=== PATIENT | male | born 1940 | race Caucasian/White ===

== ENCOUNTER 2019-12-17 09:24 | Outpatient (RCR) | payer MEDICARE | END 2019-12-29 | LOC: M PT 09:24 | PROVIDERS: ATTEND Internal Medicine Cardiovascular Disease | DX: Z51.89 Encounter for other specified aftercare (principal); I63.9 Cerebral infarction, unspecified ==

== ENCOUNTER 2020-07-31 15:14 | Inpatient (IN) | payer MEDICARE ==
[~2020-07-31] VITALS: Ht 170.2 cm; Wt 69.4 kg
--- NOTE | 2020-07-31 15:35 | REP ---
INDICATION: CVA - Nursing interventions must not delay CT COMPARISON: None. TECHNIQUE: Axial noncontrast images from the skull base to the thoracic inlet with coronal reformations. This CT examination was performed using the following dose reduction techniques: Automated exposure control, adjustment of mA and/or kv according to the patient's size, and use of iterative reconstruction technique. FINDINGS: Atrophy with periventricular leukomalacia and microvascular ischemic changes are appreciated. Scattered areas of encephalomalacia suggest old infarctions primarily involving the right occipital region. The ventricles and sulci are symmetric. Molina-white differentiation is maintained. There is no evidence for acute intracranial hemorrhage, mass/mass effect, pathology or infarction. No extra-axial fluid collection. Calvarium is intact. Paranasal sinuses and mastoid air cells are clear. IMPRESSION: Atrophy and microvascular ischemic changes. No acute intracranial hemorrhage, edema, or mass/mass effect noted. <Electronically signed by Rowdy Lanza > 07/31/20 [id number]
--- NOTE | 2020-07-31 16:24 | REP ---
INDICATION: CVA COMPARISON: None. TECHNIQUE: Portable AP view of the chest FINDINGS: The mediastinum and cardiac silhouette are within normal limits for portable technique. The lung anderson are clear without acute consolidation, effusion, or pneumothorax. Skeletal structures are intact. IMPRESSION: No acute cardiopulmonary process appreciated. <Electronically signed by Rowdy Lanza > 07/31/20 [id number]
[2020-07-31 16:31] LABS: BASO % 0.7 % (0.0-1.0); EOS # 0.2 10^3/uL (0.0-0.5); EOS % 2.7 % (0.0-3.0); HEMATOCRIT 45.7 % (42.0-52.0); HEMOGLOBIN 15.9 g/dl (13.5-17.5); LYMPH # 1.5 10^3/uL (1.5-5.0); LYMPH % 26.7 % (24.0-44.0); MEAN CORPUSCULAR HEMOGLOBIN 32.9 pg (27.0-33.0); MEAN CORPUSCULAR HGB CONC 34.8 g/dl (32.0-36.5); MEAN CORPUSCULAR VOLUME 94.4 fl (80.0-96.0); MONO # 0.6 10^3/uL (0.0-0.8); MONO % 10.4 % (2.0-8.0); NEUTROPHILS # 3.2 10^3/uL (1.5-8.5); NEUTROPHILS % 58.6 % (36.0-66.0); PLATELET COUNT, AUTOMATED 269 10^3/uL (150-450); RED BLOOD COUNT 4.84 10^6/uL (4.30-6.10); WHITE BLOOD COUNT 5.5 10^3/uL (4.0-10.0)
[2020-07-31 16:42] LABS: INR 0.98; PARTIAL THROMBOPLASTIN TIME 30.5 SECONDS (24.2-38.5); PROTHROMBIN TIME 13.2 SECONDS (12.5-14.3)
[2020-07-31 17:00] LABS: CK-MB VALUE MASS < 1.0 NG/ML (<3.6); CPK CREATINE PHOSPHOKINASE 95 U/L (39-308); MB/CK RELATIVE INDEX 1.05 (< OR =4); TROPONIN I < 0.02 NG/ML (< 0.10)
[2020-07-31 17:30] LABS: BLOOD UREA NITROGEN 20 MG/DL (7-18); CALCIUM LEVEL 9.3 MG/DL (8.8-10.2); CARBON DIOXIDE LEVEL 26 MEQ/L (21-32); CHLORIDE LEVEL 105 MEQ/L (98-107); CREATININE FOR GFR 1.13 MG/DL (0.70-1.30); GLOMERULAR FILTRATION RATE > 60.0 (>35); GLUCOSE, FASTING 119 MG/DL (70-100); POTASSIUM SERUM 4.2 MEQ/L (3.5-5.1); SODIUM LEVEL 138 MEQ/L (136-145)
[2020-07-31] MEDS ORDERED: ATOR40TA75 PO (17:42)
[2020-07-31] MEDS ORDERED: ASPI81CH33 (17:42)
[2020-07-31] MEDS ORDERED: ASPI81TA26 PO (17:50)
[2020-07-31] MEDS ORDERED: IBUP200T45 PO (17:51)
[2020-07-31] MEDS ORDERED: ACET-861 PO (17:51)
--- NOTE | 2020-07-31 19:08 | HPEPDOC ---
General Date of Admission 07/31/20 Date of Service: Jul 31, 2020 Chief Complaint The patient is a 79-year-old male admitted with a reason for visit of S/S Stroke. Source: Patient, RN/MD History of Present Illness 79-year-old male with past medical history of hyperlipidemia, GERD, hemorrhagic stroke in November 2019, presented to emergency room with the slurring of speech for 1 day. Patient states that his thinks his speech is slurred. However, patient himself feels that his speech is normal. reported that she first noticed is some speech to be garbled yesterday morning at 7 AM when he was talking over the phone. Yesterday throughout the day and today he has been having intermittent episodes of garbled speech, so he called PMDs office and was instructed to be brought to the emergency room. In the ED, his CT scan showed chronic microvascular changes, no acute ischemic stroke or hemorrhage. . He continued to have speech abnormality without any weakness of the limbs. He was admitted for evaluation of acute stroke. 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 Prostatectomy. Family History Significant Family History: COPD (. Father), Diabetes (mother, 2 sisters), Heart disease (, mother and one brother and one sister), Renal disease (. One sister was in dialysis), Vascular disease (, brother, one sister had aneurysm) Social History * Smoker: cigar (. Occasionally, but quit several years ago) Alcohol: occationally (. One beer a day) Drugs: denies A-FIB/CHADSVASC A-FIB History Current/History of A-Fib/PAF?: No Review of Systems Constitutional: Denies: Chills, Fever, Night Sweats Eyes: Denies: Pain, Vision change ENT: Denies: Head Aches, Ear Pain, Dysphagia Skin: Denies: Rash, Lesions, Breakdown Pulmonary: Denies: Dyspnea, Cough Cardiovascular: Denies: Chest Pain, Palpitations, Orthopnea, Paroxysmal Noc. Dyspnea, Lt Headedness Gastrointestinal: Reports: Constipation; Denies: Nausea, Vomiting, Abdominal Pain, Diarrhea Genitourinary: Denies: Dysuria, Frequency, Incontinence, Retention Neurological: Reports: Change in speech, Confusion; Denies: Weakness, Numbness, Incoordination, Other Symptoms Physical Examination General Exam: Positive: Alert, Cooperative, No Acute Distress Eye Exam: Positive: PERRLA, Conjunctiva & lids normal, EOMI; Negative: Sclera icteric ENT Exam: Positive: Atraumatic, Mucous membr. moist/pink, Pharynx Normal Neck Exam: Positive: Supple; Negative: JVD, thyromegaly Chest Exam: Positive: Clear to auscultation, Normal air movement Heart Exam: Positive: Rate Normal, Regular Rhythm, Normal S1, Normal S2; Negative: Murmurs, Rubs Telemetry: Positive: No significant arrhythmia Abdomen Exam: Positive: Normal bowel sounds, Soft; Negative: Tenderness, Hepatospenomegaly Extremity Exam: Positive: Other ((with artificial leg below knee); Negative: Clubbing, Cyanosis, Edema Neuro Exam: Positive: Normal Tone, Sensation Intact, Other (, slurred speech) Psych Exam: Positive: Memory Intact, Oriented x 3 Vital Signs Vital Signs Date Time Temp Pulse Resp B/P (MAP) Pulse Ox O2 Delivery O2 Flow Rate FiO2 07/31/20 17:55 07/31/20 15:15 97.5 69 18 96 Room Air Laboratory Data Labs 24H Laboratory Tests 2 07/31/20 16:19: Immature Granulocyte % (Auto) 0.9, Neutrophils (%) (Auto) 58.6, Lymphocytes (%) (Auto) 26.7, Monocytes (%) (Auto) 10.4H, Eosinophils (%) (Auto) 2.7, Basophils (%) (Auto) 0.7, Neutrophils # (Auto) 3.2, Lymphocytes # (Auto) 1.5, Monocytes # (Auto) 0.6, Eosinophils # (Auto) 0.2, Basophils # (Auto) 0.0, Nucleated Red Blood Cells % (auto) 0.0, Prothrombin Time 13.2, Prothromb Time International Ratio 0.98, Activated Partial Thromboplast Time 30.5, Anion Gap 7L, Glomerular Filtration Rate > 60.0, Calcium Level 9.3, Total Creatine Kinase 95, Creatine Kinase MB < 1.0, Creatine Kinase MB Relative Index 1.05, Troponin I < 0.02 CBC/BMP Laboratory Tests 07/31/20 16:19 Assessment/Plan 79-year-old male with past medical history of hyperlipidemia, GERD, hemorrhagic stroke in November 2019, presented to emergency room with the slurring of speech for 1 day. Patient states that his thinks his speech is slurred. However, patient himself feels that his speech is normal. reported that she first noticed is some speech to be garbled yesterday morning at 7 AM when he was talking over the phone. Yesterday throughout the day and today he has been loaiza ving intermittent episodes of garbled speech, so he called PMDs office and was instructed to be brought to the emergency room. In the ED, his CT scan showed chronic microvascular changes, no acute ischemic stroke or hemorrhage. He continued to have speech abnormality without any weakness of the limbs. He was admitted for evaluation of acute stroke. Possible stroke Continue aspirin and statin allow permissive hypertension Telemetry monitoring Will request Recent echo from Dr. Sharma's office MRI and MRA of brain Do not use antihypertensives if his systolic blood pressure is less than 180 Carotid Doppler. Plan / VTE VTE Prophylaxis Ordered?: Yes DIPAK ALVES MD Jul 31, 2020 18:13
[2020-07-31 19:26] LABS: RSV AMPLIFICATION NEGATIVE (NEGATIVE)
--- NOTE | 2020-07-31 20:04 | REP ---
INDICATION: stroke COMPARISON: None. TECHNIQUE: Molina scale and color Doppler evaluation using linear high frequency transducer Findings: FINDINGS: Two-dimensional molina scale and color images demonstrate moderate to significant atheromatous partially calcified plaquing (left greater than right). Color Doppler interrogation demonstrates normal arterial wave patterns and velocities with spectral broadening. Visible narrowing is identified through the left common carotid artery and carotid bulb and to a lesser extent through the internal carotid artery. Normal flow direction is appreciated in the bilateral vertebral arteries. ICA peak systolic velocity: Right 73.1 cm/s; Left 102.0 cm/s ICA diastolic velocity: Right 20.9 cm/s; Left 27.8 cm/s ECA peak systolic velocity: Right 136.0 cm/s; Left 68.9 cm/s CCA peak systolic velocity: Right 92.1 cm/s; Left 88.8 cm/s ICA/CCA ratio: Right 0.79 cm/s; Left 1.15 cm/s IMPRESSION: Based on set standards narrowing falls within the less than 50% range and by visual inspection appears to be approaching 50% through the left carotid bulb and proximal internal carotid artery. <Electronically signed by Rowdy Lanza > 07/31/202000
--- NOTE | 2020-07-31 20:07 | ECGEPIP ---
[facility] - ED Test Date: 2020-07-31 Pat Name: MICHELLE TRACY Department: Room: - Gender: Male Dobie Man: : 1940 Requested By: TAMMIE Knight Order Number: [id number] Reading MD: Chris Underwood Measurements Intervals [place] Rate: 65 P: 34 [place]: 150 QRS: 0 QRSD: 94 T: 18 QT: 404 QTc: 420 Interpretive Statements Normal sinus rhythm POOR R WAVE PROGRESSION NO PRIORS FOR COMPARISON Electronically Signed on 07-31-2020 20:07:36 EDT by Chris Underwood
[2020-07-31] MEDS ORDERED: amLODIPine 5 MG TAB PO SCH (21:00)
--- NOTE | 2020-07-31 22:10 | REPVR ---
PROCEDURE INFORMATION: Exam: MR Head Without Contrast Exam date and time: 07/31/2020 6:42 PM Age: 79 years old Clinical indication: Speech disturbance; Slurred speech TECHNIQUE: Imaging protocol: MR of the head without contrast. COMPARISON: CT Head without contrast 07/31/2020 3:23 PM FINDINGS: Brain: Acute infarct in the left webb radiata measuring 1 cm. Moderate to severe chronic microvascular ischemic changes. Encephalomalacia in the right occipital lobe. Chronic infarct in the right webb radiata. Cerebral ventricles: Normal. No ventriculomegaly. Bones/joints: Unremarkable. Paranasal sinuses: Normal as visualized. No acute sinusitis. Mastoid air cells: Normal as visualized. No mastoid effusion. Orbital cavity: Unremarkable. Soft tissues: Unremarkable. IMPRESSION: Acute infarct in the left webb radiata measuring 1 cm. Electronically signed by: Jerome Finney On 07/31/2020 22:10:23 PM
--- NOTE | 2020-07-31 22:16 | REPVR ---
PROCEDURE INFORMATION: Exam: MRA Head Without Contrast; Arteriography Exam date and time: 07/31/2020 6:42 PM Age: 79 years old Clinical indication: Speech disturbance; Slurred speech TECHNIQUE: Imaging protocol: Magnetic resonance angiography head without contrast. Exam focused on the arteries. COMPARISON: CT Head without contrast 07/31/2020 3:23 PM FINDINGS: ANTERIOR CIRCULATION: Right internal carotid artery: Intracranial segment is patent with no significant stenosis. No aneurysm. Right middle cerebral artery: No occlusion or significant stenosis. No aneurysm. Right anterior cerebral artery: No occlusion or significant stenosis. No aneurysm. Left internal carotid artery: Intracranial segment is patent with no significant stenosis. No aneurysm. Left middle cerebral artery: No occlusion or significant stenosis. No aneurysm. Left anterior cerebral artery: No occlusion or significant stenosis. No aneurysm. 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 Left vertebral artery: No occlusion or significant stenosis. No aneurysm. Basilar artery: No occlusion or significant stenosis. No aneurysm. Right posterior cerebral artery: No occlusion or significant stenosis. No aneurysm. Left posterior cerebral artery: No occlusion or significant stenosis. No aneurysm. 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 Electronically signed by: Jerome Finney On 07/31/2020 22:15:57 PM
[2020-08-01] MEDS: ATORVASTATIN 20 MG TAB PO SCH ×2 (00:09→20:49)
[2020-08-01] MEDS: ASPIRIN 81MG ENTERIC TABLET PO SCH ×2 (00:09→08:47)
[2020-08-01 06:00] VITALS: BP 144/84
[2020-08-01 06:29] LABS: BASO # 0.1 10^3/uL (0.0-0.2); BASO % 0.7 % (0.0-1.0); EOS # 0.2 10^3/uL (0.0-0.5); EOS % 2.5 % (0.0-3.0); HEMATOCRIT 44.5 % (42.0-52.0); HEMOGLOBIN 15.8 g/dl (13.5-17.5); LYMPH # 1.7 10^3/uL (1.5-5.0); LYMPH % 23.4 % (24.0-44.0); MEAN CORPUSCULAR HEMOGLOBIN 32.9 pg (27.0-33.0); MEAN CORPUSCULAR HGB CONC 35.5 g/dl (32.0-36.5); MEAN CORPUSCULAR VOLUME 92.7 fl (80.0-96.0); MONO # 0.7 10^3/uL (0.0-0.8); MONO % 9.1 % (2.0-8.0); NEUTROPHILS # 4.5 10^3/uL (1.5-8.5); NEUTROPHILS % 63.5 % (36.0-66.0); PLATELET COUNT, AUTOMATED 260 10^3/uL (150-450); WHITE BLOOD COUNT 7.1 10^3/uL (4.0-10.0)
[2020-08-01 06:48] LABS: BLOOD UREA NITROGEN 16 MG/DL (7-18); CALCIUM LEVEL 9.1 MG/DL (8.8-10.2); CARBON DIOXIDE LEVEL 23 MEQ/L (21-32); CHLORIDE LEVEL 108 MEQ/L (98-107); CREATININE FOR GFR 1.04 MG/DL (0.70-1.30); GLOMERULAR FILTRATION RATE > 60.0 (>35); GLUCOSE, FASTING 108 MG/DL (70-100); POTASSIUM SERUM 4.3 MEQ/L (3.5-5.1); SODIUM LEVEL 139 MEQ/L (136-145)
[2020-08-01 08:25] LABS: CHOLESTEROL LEVEL 231 MG/DL (<200); CHOLESTEROL RISK RATIO 5.372 (<5); HDL CHOLESTEROL 43 MG/DL (>40); LDL CHOLESTEROL 149 MG/DL (<100); NON-HDL-C 188 MG/DL; TRIGLYCERIDES LEVEL 194 MG/DL (<150)
[2020-08-01] MEDS: ENOXAPARIN 40MG/0.4ML SYRINGE (J1650 PER 10MG) SC SCH (08:46)
--- NOTE | 2020-08-01 11:25 | IPNPDOC ---
Subjective Date Seen The patient was seen on 08/01/20. Subjective Chief Complaint/HPI No complaints this morning. Still has some slurring of speech Objective Physical Examination General Exam: Positive: Alert, Cooperative, No Acute Distress Eye Exam: Positive: PERRLA, Conjunctiva & lids normal, EOMI; Negative: Sclera icteric ENT Exam: Positive: Atraumatic, Mucous membr. moist/pink, Pharynx Normal Neck Exam: Positive: Supple; Negative: JVD, thyromegaly Chest Exam: Positive: Clear to auscultation, Normal air movement Heart Exam: Positive: Rate Normal, Regular Rhythm, Normal S1, Normal S2; Negative: Murmurs, Rubs Telemetry: Positive: No significant arrhythmia Abdomen Exam: Positive: Normal bowel sounds, Soft; Negative: Tenderness, Hepatospenomegaly Extremity Exam: Positive: Other ((with artificial leg below knee); Negative: Clubbing, Cyanosis, Edema Neuro Exam: Positive: Normal Tone, Sensation Intact, Other (, slurred speech) Psych Exam: Positive: Memory Intact, Oriented x 3 Assessment /Plan Assessment 79-year-old male with past medical history of hyperlipidemia, GERD, hemorrhagic stroke in November 2019, presented to emergency room with the slurring of speech for 1 day. Patient states that his thinks his speech is slurred. However, patient himself feels that his speech is normal. reported that she first noticed is some speech to be garbled yesterday morning at 7 AM when he was talking over the phone. Yesterday throughout the day and today he has been having intermittent episodes of garbled speech, so he called PMDs office and was instructed to be brought to the emergency room. In the ED, his CT scan showed chronic microvascular changes, no acute ischemic stroke or hemorrhage. He della nued to have speech abnormality without any weakness of the limbs. He was admitted for evaluation of acute stroke. MRI showed acute left webb radiata infarct. Left Webb Radiata Acute infarct. Continue aspirin and statin allow permissive hypertension Telemetry monitoring Will request Recent echo from Dr. Sharma's office Carotid Doppler no significant obstruction. Plan/VTE VTE Prophylaxis Ordered?: Yes VS, I&O, 24H, Fishbone Vital Signs/I&O Vital Signs Date Time Temp Pulse Resp B/P (MAP) Pulse Ox O2 Delivery O2 Flow Rate FiO2 08/01/20 06:00 97.5 78 20 144/84 (104) 96 07/31/20 23:50 Room Air I&O- Last 24 Hours up to 6 AM 08/01/20 06:00 Intake Total 180 ml Output Total 0 ml Balance 180 ml Laboratory Data 24H LABS Laboratory Tests 2 07/31/20 16:19: Immature Granulocyte % (Auto) 0.9, Neutrophils (%) (Auto) 58.6, Lymphocytes (%) (Auto) 26.7, Monocytes (%) (Auto) 10.4H, Eosinophils (%) (Auto) 2.7, Basophils (%) (Auto) 0.7, Neutrophils # (Auto) 3.2, Lymphocytes # (Auto) 1.5, Monocytes # (Auto) 0.6, Eosinophils # (Auto) 0.2, Basophils # (Auto) 0.0, Nucleated Red Blood Cells % (auto) 0.0, Prothrombin Time 13.2, Prothromb Time International Ratio 0.98, Activated Partial Thromboplast Time 30.5, Anion Gap 7L, Glomerular Filtration Rate > 60.0, Calcium Level 9.3, Total Creatine Kinase 95, Creatine Kinase MB < 1.0, Creatine Kinase MB Relative Index 1.05, Troponin I < 0.02 07/31/20 18:01: Coronavirus (COVID-19)(PCR) NEGATIVE, Influenza Type A (RT-PCR) NEGATIVE, Influ micheal Type B (RT-PCR) NEGATIVE, Respiratory Syncytial Virus (PCR) NEGATIVE 08/01/20 05:50: Immature Granulocyte % (Auto) 0.8, Neutrophils (%) (Auto) 63.5, Lymphocytes (%) (Auto) 23.4L, Monocytes (%) (Auto) 9.1H, Eosinophils (%) (Auto) 2.5, Basophils (%) (Auto) 0.7, Neutrophils # (Auto) 4.5, Lymphocytes # (Auto) 1.7, Monocytes # (Auto) 0.7, Eosinophils # (Auto) 0.2, Basophils # (Auto) 0.1, Nucleated Red Blood Cells % (auto) 0.0, Anion Gap 8, Glomerular Filtration Rate > 60.0, C alcium Level 9.1, Triglycerides Level 194H, Total Cholesterol 231H, LDL Cholesterol 149H, Non-HDL Cholesterol (LDL + VLDL) 188, Total HDL Cholesterol 43, Cholesterol/HDL Ratio 5.372H CBC/BMP Laboratory Tests 07/31/20 16:19 08/01/20 05:50 DIPAK ALVES MD Aug 01, 2020 11:25
[2020-08-01 14:00] VITALS: BP 127/66
[2020-08-01 22:00] VITALS: BP 143/70
[2020-08-02 06:00] VITALS: BP 142/67
[2020-08-02] MEDS: ENOXAPARIN 40MG/0.4ML SYRINGE (J1650 PER 10MG) SC SCH (08:50)
[2020-08-02 08:55] VITALS: BP 124/66
[2020-08-02] MEDS: ASPIRIN 81MG ENTERIC TABLET PO SCH (09:02)
--- NOTE | 2020-08-03 08:23 | DS.PDOC ---
Discharge Summary General Date of Admission Jul 31, 2020 at 18:42 Date of Discharge 08/02/20 Discharge Summary PROCEDURES PERFORMED DURING STAY: [None]. DISCHARGE DIAGNOSES: Acute left Woods radiata infarct 1cm. 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 HOSPITAL COURSE: 79-year-old male with past medical history of hyperlipidemia, GERD, hemorrhagic stroke in November 2019, presented to emergency room with the slurring of speech for 1 day. Patient states that his thinks his speech is slurred. However, patient himself feels that his speech is normal. reported that she first noticed is some speech to be garbled the before admission in morning at 7 AM when he was talking over the phone. He had been having interm ittent episodes of garbled speech for 1 day, so he called PMDs office and was instructed to be brought to the emergency room. In the ED, his CT scan showed chronic microvascular changes, no acute ischemic stroke or hemorrhage. He continued to have speech abnormality without any weakness of the limbs. He was admitted for evaluation of acute stroke. MRI showed acute left woods radiata infarct. Left Woods Radiata Acute infarct. Continue aspirin and statin not hypertensive Telemetry monitoring no cardiac arrhythmias. Did have sinus bradycardia to 40s when asleep. Carotid Doppler no significant obstruction. was evaluated by Speech therapy and PT and OT. DISCHARGE MEDICATIONS: Please see below. ALLERGIES: Please see below. PHYSICAL EXAMINATION ON DISCHARGE: VITAL SIGNS: Please see below. General Exam: Positive: Alert, Cooperative, No Acute Distress Eye Exam: Positive: PERRLA, Conjunctiva & lids normal, EOMI; Negative: Sclera icteric ENT Exam: Positive: Atraumatic, Mucous membr. moist/pink, Pharynx Normal Neck Exam: Positive: Supple; Negative: JVD, thyromegaly Chest Exam: Positive: Clear to auscultation, Normal air movement Heart Exam: Positive: Rate Normal, Regular Rhythm, Normal S1, Normal S2; Negative: Murmurs, Rubs Telemetry: Positive: No significant arrhythmia Abdomen Exam: Positive: Normal bowel sounds, Soft; Negative: Tenderness, Hepatospenomegaly Extremity Exam: Positive: Other ((with artificial leg below knee); Negative: Clubbing, Cyanosis, Edema Neuro Exam: Positive: Normal Tone, Sensation Intact, Other (, slurred speech) Psych Exam: Positive: Memory Intact, Oriented x 3 LABORATORY DATA: Please see below. IMAGING: MRI brain: FINDINGS: Brain: Acute infarct in the left woods radiata measuring 1 cm. Moderate to severe chronic microvascular ischemic changes. Encephalomalacia in the right occipital lobe. Chronic infarct in the right woods radiata. Cerebral ventricles: Normal. No ventriculomegaly. Bones/joints: Unremarkable. Paranasal sinuses: Normal as visualized. No acute sinusitis. Mastoid air cells: Normal as visualized. No mastoid effusion. Orbital cavity: Unremarkable. Soft tissues: Unremarkable. IMPRESSION: Acute infarct in the left woods radiata measuring 1 cm. MRA brain: FINDINGS: ANTERIOR CIRCULATION: Right internal carotid artery: Intracranial segment is patent with no significant stenosis. No aneurysm. Right middle cerebral artery: No occlusion or significant stenosis. No aneurysm. Right anterior cerebral artery: No occlusion or significant stenosis. No aneurysm. Left internal carotid artery: Intracranial segment is patent with no significant stenosis. No aneurysm. Left middle cerebral artery: No occlusion or significant stenosis. No aneurysm. Left anterior cerebral artery: No occlusion or significant stenosis. No aneurysm. 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 Left vertebral artery: No occlusion or significant stenosis. No aneurysm. Basilar artery: No occlusion or significant stenosis. No aneurysm. Right posterior cerebral artery: No occlusion or significant stenosis. No aneurysm. Left posterior cerebral artery: No occlusion or significant stenosis. No aneurysm. 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 Carotid Vascular US FINDINGS: Two-dimensional quiles scale and color images demonstrate moderate to significant atheromatous partially calcified plaquing (left greater than right). Color Doppler interrogation demonstrates normal arterial wave patterns and velocities with spectral broadening. Visible narrowing is identified through the left common carotid artery and carotid bulb and to a lesser extent through the internal carotid artery. Normal flow direction is appreciated in the bilateral vertebral arteries. ICA peak systolic velocity: Right 73.1 cm/s; Left 102.0 cm/s ICA diastolic velocity: Right 20.9 cm/s; Left 27.8 cm/s ECA peak systolic velocity: Right 136.0 cm/s; Left 68.9 cm/s CCA peak systolic velocity: Right 92.1 cm/s; Left 88.8 cm/s ICA/CCA ratio: Right 0.79 cm/s; Left 1.15 cm/s IMPRESSION: Based on set standards narrowing falls within the less than 50% range and by visual inspection appears to be approaching 50% through the left carotid bulb and proximal internal carotid artery. ACTIVITY: [As tolerated]. DIET: Regular DISPOSITION: 01 Home, Self-Care. DISCHARGE INSTRUCTIONS: PMD in 1 week Neurology in 2 to 3 weeks DISCHARGE CONDITION: [Stable]. TIME SPENT ON DISCHARGE:35 minutes. Vital Signs/I&Os Vital Signs Date Time Temp Pulse Resp B/P (MAP) Pulse Ox O2 Delivery O2 Flow Rate FiO2 08/02/20 08:55 98.3 66 16 124/66 (85) 95 Room Air I&O- Last 24 Hours up to 6 AM 08/03/20 06:00 Intake Total 0 ml Balance 0 ml Discharge Medications Scheduled Acetaminophen (Acetaminophen) 500 Mg Tablet, 500 MG PO Q2D, (Reported) Aspirin (Aspirin EC) 81 Mg Tablet.dr, 81 MG PO DAILY, (Reported) Atorvastatin Calcium (Atorvastatin Calcium) 40 Mg Tablet, 40 MG PO DAILY, (Reported) Ibuprofen (Ibu-200) 200 Mg Tablet, 200 MG PO Q2D, (Reported) Allergies Coded Allergies: Penicillins (Verified Allergy, Unknown, 07/31/20) iodine (Verified Allergy, Unknown, 07/31/20) "throat closed up" DIPAK ALVES MD Aug 03, 2020 08:23
== END 2020-08-02 09:50 | disposition home or self-care (01) | DRG 65 ==
LOC: M ED 15:14 → M ED INP 18:42 → ENRESERV 21:48 → M MSPAV 23:50
PROVIDERS: ADMIT Internal Medicine Nephrology; ATTEND Internal Medicine Nephrology
DX: I63.59 Cerebral infarction due to unspecified occlusion or stenosis of other cerebral artery (principal); I69.354 Hemiplegia and hemiparesis following cerebral infarction affecting left non-dominant side; E78.5 Hyperlipidemia, unspecified; K21.9 Gastro-esophageal reflux disease without esophagitis; I65.01 Occlusion and stenosis of right vertebral artery; Z79.82 Long term (current) use of aspirin; Z79.899 Other long term (current) drug therapy; Z85.46 Personal history of malignant neoplasm of prostate; Q72 Reduction defects of lower limb; Q71.22 Congenital absence of both forearm and hand, left upper limb; Q72.31 Congenital absence of right foot and toe(s); Q71.31 Congenital absence of right hand and finger; Z98.49 Cataract extraction status, unspecified eye; Z87.891 Personal history of nicotine dependence; Z88.0 Allergy status to penicillin; Z88.8 Allergy status to other drugs, medicaments and biological substances

== ENCOUNTER → 2021-06-09 | Outpatient (CLI) | payer MEDICARE ==
[~2021-06-09] MED LIST: ACET-861 PO; ASPI81CH33; ASPI81TA26 PO; ATOR40TA75 PO; IBUP200T45 PO
== END ==
LOC: M RAD 06:39
PROVIDERS: ATTEND Internal Medicine Cardiovascular Disease
DX: K81.9 Cholecystitis, unspecified (principal)
CPT/HCPCS: 78227; A9537

== ENCOUNTER 2024-12-19 10:49 | Emergency (ER) | payer MEDICARE ==
[~2024-12-19] VITALS: Ht 170.2 cm; Wt 72.0 kg
[2024-12-19] MEDS ORDERED: LOSA25TA13 PO (11:08)
[2024-12-19 13:11] VITALS: BP 135/65; O2SAT 96
[2024-12-19] MEDS: IPRATROPIUM 0.5 MG/ALBUTEROL 2.5 MG INH SOL UD 3 ML NEB ONE (13:45)
[2024-12-19] MEDS: ACETAMINOPHEN 500 MG TAB PO ONE (13:45)
[2024-12-19 14:50] VITALS: TEMP 100.8
[2024-12-19] MEDS ORDERED: NEBU1EAC78 MC (15:25)
[2024-12-19] MEDS ORDERED: PRED20TA PO (15:25)
[2024-12-19] MEDS ORDERED: VENTAER INH (15:25)
[2024-12-19] MEDS ORDERED: ALBU2.5V10 NEB (15:25)
== END 2024-12-19 15:35 | disposition home or self-care (01) ==
LOC: M ED 10:49
DX: R05.9 Cough, unspecified (principal); B97.4 Respiratory syncytial virus as the cause of diseases classified elsewhere; Z86.73 Personal history of transient ischemic attack (TIA), and cerebral infarction without residual deficits; Z88.0 Allergy status to penicillin; Z88.8 Allergy status to other drugs, medicaments and biological substances; Z79.51 Long term (current) use of inhaled steroids; Z79.1 Long term (current) use of non-steroidal anti-inflammatories (NSAID); Z79.52 Long term (current) use of systemic steroids; Z79.899 Other long term (current) drug therapy